=== PATIENT | male | born 1965 | race Caucasian/White ===

== ENCOUNTER 2023-05-31 16:22 | Inpatient (IN) | payer MEDICARE ==
[~2023-05-31 16:22] MED LIST: Iopamidol-370 76% 500 ML MDV (1 ML CHARGE) ONE
[2023-05-31] MEDS ORDERED: Nitroglycerin 2% Ointment 1 INCH/1 GM Packet ONE (16:57)
[2023-05-31 17:16] LABS: #Monocytes 0.6 thou/uL (0.11-0.59); %Basophils 0.3 % (0.0-1.0); %Eosinophils 0.6 % (0.0-10.0); %Lymphocytes 27.9 % (21.0-51.0); %Monocytes 9.1 % (0.0-10.0); %Neutrophils 61.8 % (42.0-75.0); Hematocrit 42.4 % (42.0-52.0); Hemoglobin 14.3 g/dL (14.0-18.0); Mean Corpuscular HGB CONC 33.7 g/dL (32.0-36.0); Mean Corpuscular Hemoglobin 32.1 pg (27.0-31.0); Mean Corpuscular Volume 95.3 fl (78.0-98.0); Mean Platelet Volume 9.7 fL (7.4-10.4); Platelet Count 210 10x3/uL (130-400); RBC Distribution Width 14.1 % (11.5-14.5); Red Blood Cell (RBC) Count 4.45 mill/uL (4.70-6.10); White Blood Cell (WBC) Count 6.5 10x3/uL (4.8-10.8)
[2023-05-31 17:41] LABS: ALT (SGPT) 25 U/L (8-55); AST (SGOT) 38 U/L (5-34); Albumin 2.9 g/dL (3.5-5.0); Alkaline Phosphatase 97 U/L (40-110); Anion Gap 15 mmol/L (10-20); BUN (Urea Nitrogen) 13 mg/dL (8.4-25.7); Bilirubin, Total 0.4 mg/dL (0.2-1.2); Calc. Creatinine Clearance 0 mL/min (70-130); Calcium 8.3 mg/dL (7.8-10.44); Carbon Dioxide 27 mmol/L (22-29); Chloride 100 mmol/L (98-107); Estimated GFR 42; Globulin 3.7 g/dL (2.4-3.5); Glucose 98 mg/dL (70-105); Lipase 74 U/L (8-78); Magnesium 1.8 mg/dL (1.6-2.6); Potassium 3.9 mmol/L (3.5-5.1); Protein, Total 6.6 g/dL (6.0-8.3); Sodium 138 mmol/L (136-145)
[2023-05-31] MEDS ORDERED: Labetalol HCl 100 MG/20 ML VIAL ONE (17:59)
[2023-05-31] MEDS ORDERED: Acetaminophen 500 MG TAB ONE (18:06)
[2023-05-31] MEDS ORDERED: Furosemide 40 MG/4 ML VIAL ONE (19:39)
[2023-05-31] MEDS ORDERED: hydrALAZINE 20 MG/ML VIAL ONE (20:06)
[2023-05-31] MEDS ORDERED: Aspirin Chewable 81 MG TAB ONE (20:06)
[2023-05-31] MEDS ORDERED: Ondansetron ODT 4 MG TAB PO PRN (20:35)
[2023-05-31] MEDS ORDERED: Ondansetron PF 4 MG/2 ML Vial IVP PRN (20:35)
[2023-05-31] MEDS ORDERED: Acetaminophen 650 MG Suppository PR PRN (20:35)
[2023-05-31] MEDS ORDERED: Nitroglycerin 50 MG/250 ML BOT 250 ML IVPB SCH (20:45)
[2023-05-31] MEDS: Carvedilol 6.25 MG TAB PO SCH ×2 (21:14)
[2023-05-31 21:39] LABS: Troponin I 0.052 ng/mL (< 0.028)
[2023-06-01 00:29] LABS: Troponin I 0.053 ng/mL (< 0.028)
[2023-06-01] MEDS: Acetaminophen 325 MG TAB PO PRN ×3 (01:16→23:45)
[2023-06-01] MEDS ORDERED: Albumin 25% 25 GM/100 ML BOT IVPB SCH (03:45)
[2023-06-01 04:08] LABS: Hematocrit 36.1 % (42.0-52.0); Hemoglobin 12.2 g/dL (14.0-18.0); Mean Corpuscular HGB CONC 33.8 g/dL (32.0-36.0); Mean Corpuscular Volume 94.8 fl (78.0-98.0); Mean Platelet Volume 9.8 fL (7.4-10.4); Platelet Count 190 10x3/uL (130-400); RBC Distribution Width 14.1 % (11.5-14.5); Red Blood Cell (RBC) Count 3.81 mill/uL (4.70-6.10); White Blood Cell (WBC) Count 5.8 10x3/uL (4.8-10.8)
[2023-06-01 04:16] LABS: Delete Auto Diff?? YES; Manual Diff?? YES
[2023-06-01 04:35] LABS: Anion Gap 11 mmol/L (10-20); BUN (Urea Nitrogen) 15 mg/dL (8.4-25.7); Calc. Creatinine Clearance 35 mL/min (70-130); Calcium 8.2 mg/dL (7.8-10.44); Carbon Dioxide 27 mmol/L (22-29); Chloride 103 mmol/L (98-107); Estimated GFR 44; Glucose 105 mg/dL (70-105); Magnesium 1.7 mg/dL (1.6-2.6); Potassium 4.1 mmol/L (3.5-5.1); Sodium 137 mmol/L (136-145)
[2023-06-01 04:56] LABS: HBCM Index 0.14 S/CO (0-0.79); Hep A IgM AB Non-Reactive S/CO (NonReactive); Hep A IgM S/CO 0.26 S/CO (0-0.79); Hep B Surf Ag Non-Reactive S/CO (NonReactive); Hepatitis B Core IgM Abs Non-Reactive S/CO (NonReactive)
[2023-06-01 05:03] LABS: Hep C IgG Ab Reflex HepC Qnt S/CO (NonReactive); Hep C Index 10.81 S/CO (0-0.79)
[2023-06-01 05:10] LABS: Anisocytosis SLIGHT = 6-15 cells HPF (0-5); CellaVision Operator ID lab.sh2; Eosinophils 1 % (0-10); Lymphocytes 15 % (21-51); Macrocytosis SLIGHT = 6-15 cells HPF (0-5); Monocytes 9 % (0-10); Neutrophil 74 % (42-75); Ovalocytes SLIGHT = 2-5 cells HPF (0-1); Platelet Adequacy Comment Platelets Normal; Polychromasia SLIGHT = 2-3 cells HPF (0-2); Smudge Cells 22.2 %; Total Cell Count 99; Vacuoles SLIGHT
[2023-06-01] MEDS ORDERED: hydrALAZINE 20 MG/ML VIAL SLOW IVP SCH (06:00)
[2023-06-01] MEDS: Carvedilol 6.25 MG TAB PO SCH ×2 (07:38→16:46)
[2023-06-01] MEDS: Spironolactone 100 MG TAB PO SCH (07:39)
[2023-06-01] MEDS: hydrALAZINE 20 MG/ML VIAL SLOW IVP PRN ×3 (09:21→22:16)
[2023-06-01] MEDS: niCARdipine 25 MG in Sodium Chloride 0.9% 250 ML 250 ML IVPB SCH (10:25)
[2023-06-01 11:53] LABS: PTT 33.2 sec (22.9-36.1); Prothrombin Time 13.7 sec (12.0-14.7)
[2023-06-01] MEDS ORDERED: Sodium Bicarbonate 2.5 MEQ/5 ML VIAL ONE (15:13)
[2023-06-01] MEDS ORDERED: Lidocaine 1% PF 5 ML VIAL ONE (15:13)
[2023-06-01 16:50] LABS: RBC Count-Automated (BF) 372 /cu.mm; WBC/Nucleated-Auto (BF) 209 /cu.mm
[2023-06-01 16:58] LABS: BF Color Yellow; Body Fluid Source Ascites Body Fluid; Clarity Hazy (Clear); Tube # EDTA
[2023-06-01 17:19] LABS: BF Segmented Neutrophils 8 %; Cell Count Non Hematic 68 %; Lymphocytes 24 %
[2023-06-02] MEDS: niCARdipine 25 MG in Sodium Chloride 0.9% 250 ML 250 ML IVPB SCH (05:01)
[2023-06-02] MEDS: Acetaminophen 325 MG TAB PO PRN ×3 (05:08→18:23)
[2023-06-02 06:42] LABS: #Monocytes 0.6 thou/uL (0.11-0.59); #Neutrophils 3.8 thou/uL (1.40-6.50); %Basophils 0.2 % (0.0-1.0); %Eosinophils 0.3 % (0.0-10.0); %Lymphocytes 30.3 % (21.0-51.0); %Monocytes 9.1 % (0.0-10.0); %Neutrophils 59.9 % (42.0-75.0); Hematocrit 38.1 % (42.0-52.0); Hemoglobin 12.6 g/dL (14.0-18.0); Mean Corpuscular HGB CONC 33.1 g/dL (32.0-36.0); Mean Corpuscular Hemoglobin 31.7 pg (27.0-31.0); Mean Platelet Volume 9.9 fL (7.4-10.4); Platelet Count 209 10x3/uL (130-400); RBC Distribution Width 14.5 % (11.5-14.5); Red Blood Cell (RBC) Count 3.97 mill/uL (4.70-6.10); White Blood Cell (WBC) Count 6.3 10x3/uL (4.8-10.8)
[2023-06-02 07:07] LABS: ALT (SGPT) 21 U/L (8-55); AST (SGOT) 36 U/L (5-34); Alkaline Phosphatase 87 U/L (40-110); Anion Gap 12 mmol/L (10-20); BUN (Urea Nitrogen) 20 mg/dL (8.4-25.7); Bilirubin, Total 0.5 mg/dL (0.2-1.2); Calc. Creatinine Clearance 27 mL/min (70-130); Calcium 8.1 mg/dL (7.8-10.44); Carbon Dioxide 26 mmol/L (22-29); Chloride 102 mmol/L (98-107); Estimated GFR 32; Globulin 3.1 g/dL (2.4-3.5); Glucose 113 mg/dL (70-105); Iron 37 ug/dL (65-175); Iron Binding Capacity, Total 256 mcg/dL (261-462); Potassium 3.8 mmol/L (3.5-5.1); Protein, Total 6.1 g/dL (6.0-8.3); Sodium 136 mmol/L (136-145)
[2023-06-02] MEDS: Spironolactone 100 MG TAB PO SCH (08:10)
[2023-06-02] MEDS ORDERED: Senokot S 8.6-50 MG TAB PO PRN (09:09)
[2023-06-02] MEDS ORDERED: Polyethylene Glycol 3350 17 GM Packet PO PRN (09:11)
[2023-06-02] MEDS: Carvedilol 6.25 MG TAB PO SCH ×2 (09:30→18:20)
[2023-06-02] MEDS: Nicotine 14 MG PATCH TD SCH (09:53)
[2023-06-02] MEDS: hydrALAZINE 20 MG/ML VIAL SLOW IVP PRN ×3 (09:53→21:53)
[2023-06-02 12:53] LABS: ANA Symphony (Qualitative) Negative (Negative); ANA Symphony (Quantitative) 0.2 Ratio (< 0.7 Negative); EliA Vaculitis New Method **** NEW METHOD ****; Mitochondrial Ab 0.7 U/mL (<4 Negative); dsDNA IgG Antibody 1.6 IU/mL (<10 Negative)
[2023-06-02] MEDS ORDERED: Nadolol 40 MG TAB PO SCH (18:15)
[2023-06-02] MEDS ORDERED: NIFEdipine XL 30 MG ER.TAB PO SCH (18:15)
[2023-06-03] MEDS: Acetaminophen 325 MG TAB PO PRN (01:52)
[2023-06-03] MEDS: hydrALAZINE 20 MG/ML VIAL SLOW IVP PRN (01:54)
[2023-06-03] MEDS ORDERED: Labetalol HCl 100 MG/20 ML VIAL SLOW IVP PRN (02:04)
[2023-06-03 02:41] LABS: Bacteria/HPF None Seen HPF (None Seen); Bilirubin Negative (Negative); Blood, Urine Negative (Negative); CAUTI Indications for Culture Pelvic or flank pain; Clarity Clear (Clear); Glucose, Urine (Dipstick) Normal (Negative); Ketone, Urine Negative (Negative); Leukocyte Negative Leu/uL (Negative); Nitrite Negative (Negative); Protein, Urine (Dipstick) 300 mg/dL (Neg-Trace); RBC/HPF 0-3 HPF (0-3); Squamous Epithelial None Seen HPF (0-3); Urobilinogen Normal mg/dL (Less than 2); WBC/HPF 0-3 HPF (0-3)
[2023-06-03 02:44] LABS: Urine Culture Reflex No No
[2023-06-03 02:49] LABS: Amphetamine Not Detected (NotDetected); Barbiturates Screen Not Detected (NotDetected); Benzodiazepine Screen Not Detected (NotDetected); Cocaine Metabolite Screen Not Detected (NotDetected); Methadone Not Detected (NotDetected); Methamphetamine Not Detected (NotDetected); Opiate Screen Not Detected (NotDetected); Oxycodone Screen Not Detected (NotDetected); Phencyclidine (PCP) Not Detected (NotDetected); THC/Cannabinoid Screen Not Detected (NotDetected); Tricyclic Screen Not Detected (NotDetected)
[2023-06-03 02:59] LABS: Creatinine, Urine 95.61 mg/dL (63-166); Sodium, Urine Less than 20 mmol/L (Not Available); Urea Nitrogen, Random Urine 506 mg/dl
[2023-06-03 03:13] LABS: Protein, Urine Random Quant 375 mg/dL (1-14)
[2023-06-03] MEDS ORDERED: Melatonin 3 MG TAB PO PRN (03:29)
[2023-06-03] MEDS ORDERED: HYDROcodone/Acetaminophen 5/325 mg Tablet PO SCH (03:30)
[2023-06-03] MEDS ORDERED: Lidocaine 4% Patch TD SCH (03:30)
[2023-06-03] MEDS ORDERED: Nadolol 40 MG TAB PO SCH ×2 (03:45→09:30)
[2023-06-03 05:17] LABS: Albumin 3.1 g/dL (3.5-5.0); Anion Gap 12 mmol/L (10-20); BUN (Urea Nitrogen) 20 mg/dL (8.4-25.7); BUN/Creatinine Ratio 9.09; Calc. Creatinine Clearance 69 mL/min (70-130); Carbon Dioxide 26 mmol/L (22-29); Chloride 103 mmol/L (98-107); Estimated GFR 34; Glucose 113 mg/dL (70-105); Phosphorus 3.2 mg/dL (2.3-4.7); Sodium 137 mmol/L (136-145)
[2023-06-03 06:03] LABS: #Monocytes 0.5 thou/uL (0.11-0.59); #Neutrophils 3.3 thou/uL (1.40-6.50); %Basophils 0.2 % (0.0-1.0); %Eosinophils 0.7 % (0.0-10.0); %Lymphocytes 30.2 % (21.0-51.0); %Monocytes 8.6 % (0.0-10.0); %Neutrophils 60.1 % (42.0-75.0); Hemoglobin 11.6 g/dL (14.0-18.0); Mean Corpuscular HGB CONC 32.2 g/dL (32.0-36.0); Mean Corpuscular Volume 96.3 fl (78.0-98.0); Mean Platelet Volume 9.7 fL (7.4-10.4); Platelet Count 192 10x3/uL (130-400); RBC Distribution Width 14.7 % (11.5-14.5); Red Blood Cell (RBC) Count 3.74 mill/uL (4.70-6.10); White Blood Cell (WBC) Count 5.5 10x3/uL (4.8-10.8)
[2023-06-03 06:25] LABS: ALT (SGPT) 20 U/L (8-55); AST (SGOT) 35 U/L (5-34); Albumin 2.7 g/dL (3.5-5.0); Alkaline Phosphatase 71 U/L (40-110); Anion Gap 9 mmol/L (10-20); BUN (Urea Nitrogen) 24 mg/dL (8.4-25.7); Bilirubin, Total 0.3 mg/dL (0.2-1.2); Calc. Creatinine Clearance 67 mL/min (70-130); Carbon Dioxide 28 mmol/L (22-29); Chloride 103 mmol/L (98-107); Estimated GFR 33; Globulin 2.8 g/dL (2.4-3.5); Glucose 132 mg/dL (70-105); Potassium 4.3 mmol/L (3.5-5.1); Protein, Total 5.5 g/dL (6.0-8.3); Sodium 136 mmol/L (136-145)
[2023-06-03] MEDS ORDERED: Albumin 25% 25 GM/100 ML BOT IVPB SCH (06:45)
[2023-06-03] MEDS: Nicotine 14 MG PATCH TD SCH (08:33)
[2023-06-03] MEDS: Metamucil PACK PO SCH (08:33)
[2023-06-03] MEDS: Spironolactone 100 MG TAB PO SCH (08:34)
[2023-06-03] MEDS: NIFEdipine XL 60 MG ER.TAB PO SCH (08:34)
[2023-06-03] MEDS: HYDROcodone/Acetaminophen 5/325 mg Tablet PO PRN ×3 (10:43→23:30)
[2023-06-03] MEDS: Albumin 25% 25 GM/100 ML BOT IVPB SCH ×3 (12:04→23:28)
[2023-06-03 14:13] LABS: HCV RNA, log10 6.182 (.); Hep C PCR-Quant 1520000 IU/mL (.)
[2023-06-03] MEDS ORDERED: Transdermal Patch Removal TOP SCH (15:30)
[2023-06-04] MEDS: Albumin 25% 25 GM/100 ML BOT IVPB SCH ×4 (05:32→23:32)
[2023-06-04] MEDS: HYDROcodone/Acetaminophen 5/325 mg Tablet PO PRN ×4 (05:36→23:37)
[2023-06-04 05:45] LABS: #Monocytes 0.5 thou/uL (0.11-0.59); #Neutrophils 3.1 thou/uL (1.40-6.50); %Basophils 0.2 % (0.0-1.0); %Eosinophils 0.8 % (0.0-10.0); %Lymphocytes 30.7 % (21.0-51.0); %Monocytes 9.2 % (0.0-10.0); %Neutrophils 58.9 % (42.0-75.0); Hematocrit 35.1 % (42.0-52.0); Hemoglobin 11.4 g/dL (14.0-18.0); Mean Corpuscular HGB CONC 32.5 g/dL (32.0-36.0); Mean Corpuscular Hemoglobin 31.6 pg (27.0-31.0); Mean Corpuscular Volume 97.2 fl (78.0-98.0); Mean Platelet Volume 9.9 fL (7.4-10.4); Platelet Count 179 10x3/uL (130-400); RBC Distribution Width 14.5 % (11.5-14.5); Red Blood Cell (RBC) Count 3.61 mill/uL (4.70-6.10); White Blood Cell (WBC) Count 5.2 10x3/uL (4.8-10.8)
[2023-06-04 06:06] LABS: ALT (SGPT) 17 U/L (8-55); AST (SGOT) 26 U/L (5-34); Alkaline Phosphatase 57 U/L (40-110); Anion Gap 13 mmol/L (10-20); BUN (Urea Nitrogen) 26 mg/dL (8.4-25.7); Bilirubin, Total 0.4 mg/dL (0.2-1.2); Calc. Creatinine Clearance 62 mL/min (70-130); Calcium 8.3 mg/dL (7.8-10.44); Carbon Dioxide 26 mmol/L (22-29); Chloride 104 mmol/L (98-107); Estimated GFR 30; Globulin 2.5 g/dL (2.4-3.5); Glucose 86 mg/dL (70-105); Potassium 4.6 mmol/L (3.5-5.1); Protein, Total 5.5 g/dL (6.0-8.3); Sodium 138 mmol/L (136-145)
[2023-06-04] MEDS: Nicotine 14 MG PATCH TD SCH (08:49)
[2023-06-04] MEDS: NIFEdipine XL 60 MG ER.TAB PO SCH ×2 (08:49→20:30)
[2023-06-04] MEDS: Metamucil PACK PO SCH (08:49)
[2023-06-04] MEDS ORDERED: Nadolol 40 MG TAB PO SCH (09:00)
[2023-06-04 11:55] LABS: Complement-C3 113 mg/dL (83-185); Complement-C4 13 mg/dL (15-53)
[2023-06-04 14:31] VITALS: BMI 36.9
[2023-06-05 05:39] LABS: #Eosinphils 0.1 thou/uL (0.0-0.7); #Monocytes 0.5 thou/uL (0.11-0.59); #Neutrophils 3.5 thou/uL (1.40-6.50); %Basophils 0.3 % (0.0-1.0); %Monocytes 8.9 % (0.0-10.0); %Neutrophils 59.6 % (42.0-75.0); Hematocrit 36.5 % (42.0-52.0); Mean Corpuscular HGB CONC 32.9 g/dL (32.0-36.0); Mean Corpuscular Hemoglobin 32.1 pg (27.0-31.0); Mean Corpuscular Volume 97.6 fl (78.0-98.0); Platelet Count 198 10x3/uL (130-400); RBC Distribution Width 14.5 % (11.5-14.5); Red Blood Cell (RBC) Count 3.74 mill/uL (4.70-6.10); White Blood Cell (WBC) Count 5.9 10x3/uL (4.8-10.8)
[2023-06-05] MEDS: Albumin 25% 25 GM/100 ML BOT IVPB SCH ×3 (05:55→18:17)
[2023-06-05] MEDS: HYDROcodone/Acetaminophen 5/325 mg Tablet PO PRN ×3 (06:09→18:17)
[2023-06-05 06:17] LABS: ALT (SGPT) 14 U/L (8-55); AST (SGOT) 21 U/L (5-34); Albumin 3.5 g/dL (3.5-5.0); Alkaline Phosphatase 54 U/L (40-110); Anion Gap 11 mmol/L (10-20); BUN (Urea Nitrogen) 30 mg/dL (8.4-25.7); Bilirubin, Total 0.5 mg/dL (0.2-1.2); Calc. Creatinine Clearance 59 mL/min (70-130); Calcium 8.5 mg/dL (7.8-10.44); Carbon Dioxide 26 mmol/L (22-29); Chloride 103 mmol/L (98-107); Estimated GFR 28; Globulin 2.4 g/dL (2.4-3.5); Glucose 101 mg/dL (70-105); Potassium 4.4 mmol/L (3.5-5.1); Protein, Total 5.9 g/dL (6.0-8.3); Sodium 136 mmol/L (136-145)
[2023-06-05] MEDS: NIFEdipine XL 60 MG ER.TAB PO SCH ×2 (09:26→20:00)
[2023-06-05] MEDS: Metamucil PACK PO SCH (09:26)
[2023-06-05] MEDS: Nadolol 40 MG TAB PO SCH (09:26)
[2023-06-05] MEDS: Nicotine 14 MG PATCH TD SCH (09:27)
[2023-06-05 10:21] LABS: Creatinine, Urine 104.75 mg/dL (63-166)
[2023-06-05] MEDS: Lidocaine 4% Patch TD SCH (14:14)
[2023-06-05 16:39] LABS: A/G Ratio 0.7 (0.7-1.7); Albumin 2.1 g/dL (2.9-4.4); Alpha 1 0.4 g/dL (0.0-0.4); Alpha 2 0.9 g/dL (0.4-1.0); Beta 0.8 g/dL (0.7-1.3); Gamma 0.9 g/dL (0.4-1.8); Globulin, Total 3.1 g/dL (2.2-3.9); M-Spike Not Observed g/dL (Not Observed)
[2023-06-05] MEDS: Transdermal Patch Removal TOP SCH (20:01)
[2023-06-05] MEDS: hydrALAZINE 20 MG/ML VIAL SLOW IVP PRN (20:01)
[2023-06-06] MEDS: HYDROcodone/Acetaminophen 5/325 mg Tablet PO PRN ×4 (00:17→18:28)
[2023-06-06] MEDS: Albumin 25% 25 GM/100 ML BOT IVPB SCH ×4 (00:18→18:28)
[2023-06-06 06:03] LABS: #Eosinphils 0.1 thou/uL (0.0-0.7); #Monocytes 0.6 thou/uL (0.11-0.59); #Neutrophils 3.6 thou/uL (1.40-6.50); %Monocytes 9.4 % (0.0-10.0); %Neutrophils 61.4 % (42.0-75.0); Hematocrit 34.2 % (42.0-52.0); Hemoglobin 11.2 g/dL (14.0-18.0); Mean Corpuscular HGB CONC 32.7 g/dL (32.0-36.0); Mean Corpuscular Hemoglobin 31.7 pg (27.0-31.0); Mean Corpuscular Volume 96.9 fl (78.0-98.0); Mean Platelet Volume 10.1 fL (7.4-10.4); Platelet Count 188 10x3/uL (130-400); RBC Distribution Width 14.4 % (11.5-14.5); Red Blood Cell (RBC) Count 3.53 mill/uL (4.70-6.10); White Blood Cell (WBC) Count 5.9 10x3/uL (4.8-10.8)
[2023-06-06 06:32] LABS: ALT (SGPT) 12 U/L (8-55); AST (SGOT) 20 U/L (5-34); Albumin 3.8 g/dL (3.5-5.0); Alkaline Phosphatase 55 U/L (40-110); Anion Gap 12 mmol/L (10-20); BUN (Urea Nitrogen) 34 mg/dL (8.4-25.7); Bilirubin, Total 0.6 mg/dL (0.2-1.2); Calc. Creatinine Clearance 55 mL/min (70-130); Calcium 8.7 mg/dL (7.8-10.44); Carbon Dioxide 26 mmol/L (22-29); Chloride 103 mmol/L (98-107); Estimated GFR 26; Globulin 2.3 g/dL (2.4-3.5); Glucose 98 mg/dL (70-105); Potassium 4.4 mmol/L (3.5-5.1); Protein, Total 6.1 g/dL (6.0-8.3); Sodium 137 mmol/L (136-145)
[2023-06-06] MEDS: NIFEdipine XL 60 MG ER.TAB PO SCH ×2 (08:41→20:45)
[2023-06-06] MEDS: Lidocaine 4% Patch TD SCH (08:41)
[2023-06-06] MEDS: Nadolol 40 MG TAB PO SCH (08:41)
[2023-06-06] MEDS: Metamucil PACK PO SCH (08:41)
[2023-06-06] MEDS: Nicotine 14 MG PATCH TD SCH (08:42)
[2023-06-06] MEDS ORDERED: Octreotide Acetate 500 MCG/ML VIAL SC SCH ×2 (14:30→22:00)
[2023-06-06] MEDS ORDERED: ADMIXTURE FEE SC SCH (14:45)
[2023-06-06] MEDS ORDERED: OCTREOTIDE ACETATE SC SCH (14:45)
[2023-06-06] MEDS: Ammonium Lactate 12% Lotion 225 GM BOT TOP SCH (20:44)
[2023-06-06] MEDS: hydrALAZINE 25 MG TAB PO SCH (20:45)
[2023-06-06] MEDS: ADMIXTURE FEE SC SCH (20:46)
[2023-06-06] MEDS: OCTREOTIDE ACETATE SC SCH (20:46)
[2023-06-06] MEDS: Transdermal Patch Removal TOP SCH (20:47)
[2023-06-07] MEDS: HYDROcodone/Acetaminophen 5/325 mg Tablet PO PRN ×4 (00:38→20:31)
[2023-06-07] MEDS: Albumin 25% 25 GM/100 ML BOT IVPB SCH ×2 (00:40→06:17)
[2023-06-07] MEDS: ADMIXTURE FEE SC SCH ×3 (06:17→21:45)
[2023-06-07] MEDS: OCTREOTIDE ACETATE SC SCH ×3 (06:17→21:45)
[2023-06-07 07:57] LABS: #Eosinphils 0.1 thou/uL (0.0-0.7); #Monocytes 0.6 thou/uL (0.11-0.59); #Neutrophils 3.3 thou/uL (1.40-6.50); %Basophils 0.2 % (0.0-1.0); %Eosinophils 1.2 % (0.0-10.0); %Lymphocytes 30.1 % (21.0-51.0); %Monocytes 9.9 % (0.0-10.0); %Neutrophils 58.4 % (42.0-75.0); Hemoglobin 11.4 g/dL (14.0-18.0); Mean Corpuscular HGB CONC 32.6 g/dL (32.0-36.0); Mean Corpuscular Hemoglobin 31.9 pg (27.0-31.0); Mean Platelet Volume 10.3 fL (7.4-10.4); Platelet Count 204 10x3/uL (130-400); RBC Distribution Width 14.3 % (11.5-14.5); Red Blood Cell (RBC) Count 3.57 mill/uL (4.70-6.10); White Blood Cell (WBC) Count 5.6 10x3/uL (4.8-10.8)
[2023-06-07 08:44] LABS: ALT (SGPT) 12 U/L (8-55); AST (SGOT) 18 U/L (5-34); Albumin 4.3 g/dL (3.5-5.0); Alkaline Phosphatase 44 U/L (40-110); Anion Gap 14 mmol/L (10-20); BUN (Urea Nitrogen) 36 mg/dL (8.4-25.7); Bilirubin, Total 0.8 mg/dL (0.2-1.2); Calc. Creatinine Clearance 53 mL/min (70-130); Calcium 8.8 mg/dL (7.8-10.44); Carbon Dioxide 25 mmol/L (22-29); Chloride 101 mmol/L (98-107); Estimated GFR 24; Globulin 2.2 g/dL (2.4-3.5); Glucose 127 mg/dL (70-105); Potassium 5.1 mmol/L (3.5-5.1); Protein, Total 6.5 g/dL (6.0-8.3); Sodium 135 mmol/L (136-145)
[2023-06-07] MEDS: Lidocaine 4% Patch TD SCH (08:44)
[2023-06-07] MEDS: Nicotine 14 MG PATCH TD SCH (08:44)
[2023-06-07] MEDS: Metamucil PACK PO SCH (08:44)
[2023-06-07] MEDS: NIFEdipine XL 60 MG ER.TAB PO SCH ×2 (08:44→20:30)
[2023-06-07] MEDS: hydrALAZINE 25 MG TAB PO SCH (08:45)
[2023-06-07] MEDS: Nadolol 40 MG TAB PO SCH (08:45)
[2023-06-07] MEDS: Ammonium Lactate 12% Lotion 225 GM BOT TOP SCH ×2 (08:45→20:31)
[2023-06-07] MEDS ORDERED: Polyethylene Glycol 3350 17 GM Packet PO PRN (09:15)
[2023-06-07] MEDS ORDERED: Senokot S 8.6-50 MG TAB PO PRN (09:15)
[2023-06-07] MEDS ORDERED: Isosorbide Mononitrate 60 MG ER.TAB PO SCH (14:30)
[2023-06-07] MEDS: hydrALAZINE 20 MG/ML VIAL SLOW IVP PRN (19:17)
[2023-06-07] MEDS: Transdermal Patch Removal TOP SCH (20:32)
[2023-06-07] MEDS ORDERED: hydrALAZINE 25 MG TAB PO SCH (23:02)
[2023-06-08] MEDS: HYDROcodone/Acetaminophen 5/325 mg Tablet PO PRN ×3 (02:31→14:34)
[2023-06-08 06:21] LABS: #Eosinphils 0.1 thou/uL (0.0-0.7); #Monocytes 0.6 thou/uL (0.11-0.59); #Neutrophils 3.6 thou/uL (1.40-6.50); %Basophils 0.2 % (0.0-1.0); %Eosinophils 1.5 % (0.0-10.0); %Lymphocytes 30.1 % (21.0-51.0); %Monocytes 9.5 % (0.0-10.0); %Neutrophils 58.5 % (42.0-75.0); Hematocrit 35.6 % (42.0-52.0); Hemoglobin 11.5 g/dL (14.0-18.0); Mean Corpuscular HGB CONC 32.3 g/dL (32.0-36.0); Mean Corpuscular Hemoglobin 31.2 pg (27.0-31.0); Mean Corpuscular Volume 96.5 fl (78.0-98.0); Mean Platelet Volume 10.4 fL (7.4-10.4); Platelet Count 211 10x3/uL (130-400); RBC Distribution Width 13.9 % (11.5-14.5); Red Blood Cell (RBC) Count 3.69 mill/uL (4.70-6.10); White Blood Cell (WBC) Count 6.1 10x3/uL (4.8-10.8)
[2023-06-08 07:27] LABS: ALT (SGPT) 11 U/L (8-55); AST (SGOT) 16 U/L (5-34); Albumin 3.7 g/dL (3.5-5.0); Alkaline Phosphatase 49 U/L (40-110); Anion Gap 15 mmol/L (10-20); BUN (Urea Nitrogen) 41 mg/dL (8.4-25.7); Bilirubin, Total 0.6 mg/dL (0.2-1.2); Calc. Creatinine Clearance 55 mL/min (70-130); Calcium 8.6 mg/dL (7.8-10.44); Carbon Dioxide 23 mmol/L (22-29); Chloride 102 mmol/L (98-107); Estimated GFR 25; Globulin 2.2 g/dL (2.4-3.5); Glucose 136 mg/dL (70-105); Potassium 4.9 mmol/L (3.5-5.1); Protein, Total 5.9 g/dL (6.0-8.3); Sodium 135 mmol/L (136-145)
[2023-06-08] MEDS: Lidocaine 4% Patch TD SCH (08:07)
[2023-06-08] MEDS: Metamucil PACK PO SCH (08:08)
[2023-06-08] MEDS: Nicotine 14 MG PATCH TD SCH (08:08)
[2023-06-08] MEDS: Nadolol 40 MG TAB PO SCH (08:09)
[2023-06-08] MEDS: NIFEdipine XL 60 MG ER.TAB PO SCH (08:09)
[2023-06-08] MEDS: Ammonium Lactate 12% Lotion 225 GM BOT TOP SCH (08:31)
[2023-06-08] MEDS ORDERED: hydrALAZINE 25 MG TAB PO SCH (09:00)
[2023-06-08 12:05] VITALS: BP 162/84; TEMP 98
[2023-06-08 16:37] LABS: Albumin, PEP 24hr Ur 77.9 % (NOT ESTAB.); Alpha-1-Globulin, PEP 24h Ur 3.6 % (NOT ESTAB.); Alpha-2-Globulin, PEP 24h Ur 4.4 % (NOT ESTAB.); Beta Globulin, PEP 24h Ur 9.1 % (NOT ESTAB.); M-Spike,% PEP 24hr Ur Not Observed % (Not Observed); Protein, PEP 24hr calculated 4240 mg/24 hr (30-150); Protein, Urine 471.1 mg/dL (Not Estab.)
[2023-06-10 07:20] LABS: QuantiFERON-TB Gold Plus POSITIVE (Negative)
== END 2023-06-08 16:23 | disposition home or self-care (01) | DRG 432 ==
LOC: ERS 16:22 → IMCU/EMU 19:51 → CCU 06-01 18:06 → T4-B 06-02 14:50
PROVIDERS: ADMIT Student in an Organized Health Care Education/Training Program; ATTEND Internal Medicine
PROC: 0W9G3ZZ Drainage of Peritoneal Cavity, Percutaneous Approach (ICD-10-PCS; principal; 2023-06-01)
PROC: 30233J1 Transfusion of Nonautologous Serum Albumin into Peripheral Vein, Percutaneous Approach (ICD-10-PCS; 2023-06-01)
DX: K70.31 Alcoholic cirrhosis of liver with ascites (principal); I21.A1 Myocardial infarction type 2; K76.7 Hepatorenal syndrome; I81 Portal vein thrombosis; I50.33 Acute on chronic diastolic (congestive) heart failure; K76.6 Portal hypertension; I16.1 Hypertensive emergency; N17.9 Acute kidney failure, unspecified; F31.9 Bipolar disorder, unspecified; F90.9 Attention-deficit hyperactivity disorder, unspecified type; F41.9 Anxiety disorder, unspecified; F17.210 Nicotine dependence, cigarettes, uncomplicated; B19.20 Unspecified viral hepatitis C without hepatic coma; D63.8 Anemia in other chronic diseases classified elsewhere; I11.0 Hypertensive heart disease with heart failure; E88.09 Other disorders of plasma-protein metabolism, not elsewhere classified; E66.01 Morbid (severe) obesity due to excess calories; K76.82 Hepatic encephalopathy; N14.11 Contrast-induced nephropathy; Z68.37 Body mass index [BMI] 37.0-37.9, adult; Z98.890 Other specified postprocedural states
CPT/HCPCS: 36415; 49083; 71045; 74177; 76705; 80048; 80053; 80074; 80306; 81001; 82103; 82105; 82390; 82570; 82728; 83036; 83516; 83540; 83550; 83690; 83735; 83880; 84155; 84156; 84157; 84165; 84166; 84300; 84484; 84540; 85025; 85060; 85610; 85730; 86015; 86038; 86160; 86225; 86480; 87070; 87205; 87522; 89051; 93005; 93306; 93970; 96372; 96374; 96375; J0360; J1650; J1940; J2354; J7050; P9045; P9047; Q9967